=== PATIENT | female | born 1960 | race Caucasian/White ===

== ENCOUNTER 2017-06-24 05:37 | Inpatient (IN) ==
[2017-06-13 08:39] LABS: Basophils % 0.6 % (0.0-0.8); Eosinophils # 0.5 10*3/uL (0.0-0.87); Eosinophils % 8.3 % (0.00-10.9); Hematocrit 40.9 VOL% (35.7-47.0); Hemoglobin 13.2 GM/DL (12.0-16.0); Immature Granulocytes % 0.3 %; Immature Granulocytes Absolute 0.02 #; Lymphocytes # 1.1 10*3/uL (1.4-4.0); Lymphocytes % 17.5 % (21.3-54.2); Mean Corpuscular HGB Conc 32.3 GM/DL (32-36); Mean Corpuscular Hemoglobin 30 PG (27-34); Mean Corpuscular Volume 91.7 FL (87-102); Mean Platelet Volume 10.9 FL (9.6-12.0); Monocytes # 0.5 10*3/uL (0.11-0.8); Monocytes % 7.3 % (1.7-12.7); Neutrophils # 4.1 10*3/uL (1.4-7.4); Platelet Count 221 T/CUMM (130-400); Red Blood Count 4.46 MC/CUMM (3.8-5.5); Red Cell Distribution Width 13.8 % (9.3-17.3); White Blood Count 6.2 T/CUMM (4-12)
[2017-06-13 08:47] LABS: INR 0.9; PT Patient Result 9.9 SECS
[2017-06-13 08:48] LABS: Apearance,Urine CLEAR (Clear); Bilirubin,Urine Negative (Negative); Blood, Urine Negative (Negative); Glucose,Urine (UA) Negative (Negative); Ketones,Urine 5 mg/dL (Negative); Mucus,Urine Occasional /LPF (Occasional); Nitrite,Urine Negative (Negative); Protein,Urine Negative; RBC,Urine 1 /HPF (0-4); Squamous Epithelial Cell,Urine Occasional /HPF (0-10); Urine Color Yellow (Yellow); Urine Specific Gravity 1.014 (1.001-1.035); Urine Urobilinogen < 2.0 EU/DL (0.2-1.0); WBC,Urine 1 /HPF (0-6)
[2017-06-13 09:14] LABS: Albumin 3.4 G/DL (3.4-5.0); Bilirubin,Total 0.4 MG/DL (0.2-1.0); Calcium 9.1 MG/DL (8.5-10.1); Osmolality,Calculated 284.4 MOS/KG (273-304); Potassium 4.8 MMOL/L (3.5-5.1); Total Protein 6.7 G/DL (6.4-8.3)
[2017-06-24] MEDS ORDERED: DIAZEPAM 5 MG TABLET PO ONE (06:00)
[2017-06-24] MEDS ORDERED: FAMOTIDINE 20 MG TABLET PO ONE (06:00)
[2017-06-24] MEDS ORDERED: ceFAZolin 1,000 MG VIAL ONE (06:29)
[2017-06-24] MEDS ORDERED: VANCOMYCIN 1,000 MG VIAL ONE (06:29)
[2017-06-24] MEDS ORDERED: FAMOTIDINE 20 MG TABLET ONE (06:30)
[2017-06-24] MEDS ORDERED: VANCOMYCIN INJ 1,000 MG in SODIUM CHLORIDE 0.9% 250 ML IV ONE (06:30)
[2017-06-24] MEDS ORDERED: DIAZEPAM 5 MG TABLET ONE (06:30)
[2017-06-24] MEDS: LACTATED RINGERS 1,000 ML IV SCH ×2 (06:43→09:39)
[2017-06-24] MEDS ORDERED: BISACODYL 10 MG SUPP RECTAL PRN (07:21)
[2017-06-24] MEDS ORDERED: ONDANSETRON 4 MG/2 ML VIAL IV PRN (07:21)
[2017-06-24] MEDS ORDERED: LACTULOSE 20 GM/30 ML UDCUP PO PRN (07:21)
[2017-06-24] MEDS ORDERED: MAGNESIUM HYDROXIDE SUSP 30 ML UDCUP PO PRN (07:21)
[2017-06-24] MEDS ORDERED: NALOXONE 0.4 MG/ML VIAL IV PRN (07:21)
[2017-06-24] MEDS ORDERED: PROMETHAZINE 25 MG/1 ML VIAL IM PRN (07:21)
[2017-06-24] MEDS ORDERED: diphenhydrAMINE CAP 25 MG CAPSULE PO PRN (07:21)
[2017-06-24] MEDS ORDERED: MORPHINE 4 MG/1 ML VIAL IV PRN ×2 (07:21→10:27)
[2017-06-24] MEDS ORDERED: TEMAZEPAM 7.5 MG CAPSULE PO PRN (07:21)
[2017-06-24] MEDS ORDERED: CYCLOBENZAPRINE 10 MG TABLET PO PRN (07:24)
[2017-06-24] MEDS ORDERED: traMADol 50 MG TABLET PO PRN (07:24)
[2017-06-24] MEDS ORDERED: TRANEXAMIC ACID 1,000 MG/10 ML VIAL IV ONE (08:20)
[2017-06-24] MEDS ORDERED: MAGNESIUM OXIDE 400 MG TABLET PO SCH (09:00)
[2017-06-24 09:11] LABS: Apearance,Urine CLEAR (Clear); Bilirubin,Urine Negative (Negative); Blood, Urine Negative (Negative); Glucose,Urine (UA) Negative (Negative); Ketones,Urine Negative (Negative); Nitrite,Urine Negative (Negative); Protein,Urine Negative; RBC,Urine <1 /HPF (0-4); Squamous Epithelial Cell,Urine Occasional /HPF (0-10); Urine Color Colorless (Yellow); Urine Specific Gravity 1.004 (1.001-1.035); Urine Urobilinogen < 2.0 EU/DL (0.2-1.0)
[2017-06-24] MEDS ORDERED: KETAMINE 500 MG/10 ML VIAL ONE (09:13)
[2017-06-24] MEDS ORDERED: PROPOFOL 500 MG/50 ML BOTTLE IV ONE (09:13)
[2017-06-24] MEDS ORDERED: KETOROLAC 30 MG/1 ML VIAL ONE (09:13)
[2017-06-24] MEDS ORDERED: PHENYLEPHRINE 1 MG/10 ML SYRINGE IV ONE (09:13)
[2017-06-24] MEDS ORDERED: MIDAZOLAM 2 MG/2 ML VIAL ONE (09:13)
[2017-06-24] MEDS: MORPHINE PCA 30 MG/30 ML SYRINGE IV SCH (09:42)
[2017-06-24] MEDS ORDERED: PNEUMOCOCCAL VACCINE (23 VALENT) 0.5 ML VIAL IM ONE (10:47)
[2017-06-24] MEDS: FOLIC ACID 0.4 MG TABLET PO SCH (11:41)
[2017-06-24] MEDS: PANTOPRAZOLE 40 MG TABLET PO SCH (11:41)
[2017-06-24] MEDS: CHOLECALCIFEROL 1,000 UNIT TABLET PO SCH (11:41)
[2017-06-24] MEDS: DULoxetine 30 MG CAPSULE PO SCH (11:42)
[2017-06-24] MEDS: LOSARTAN/HCTZ 50-12.5 MG TABLET PO SCH (11:42)
[2017-06-24] MEDS: ASPIRIN EC 81 MG TABLET PO SCH (11:42)
[2017-06-24] MEDS: NEBIVOLOL 5 MG TABLET PO SCH (11:42)
[2017-06-24] MEDS: DOCUSATE SODIUM 100 MG CAPSULE PO SCH ×2 (11:42→20:15)
[2017-06-24] MEDS: GABAPENTIN 100 MG CAPSULE PO SCH ×2 (11:42→20:15)
[2017-06-24] MEDS: ceFAZolin 1,000 MG in SYRINGE 1 EACH IV SCH ×2 (11:47→20:14)
[2017-06-24] MEDS: PIOGLITAZONE 15 MG TABLET PO SCH ×2 (14:24→18:42)
[2017-06-24] MEDS: metFORMIN 850 MG TABLET PO SCH ×2 (14:24→18:42)
[2017-06-24] MEDS: FONDAPARINUX 2.5 MG/0.5 ML SYRINGE SUBCUT SCH (18:42)
[2017-06-24] MEDS: MAGNESIUM OXIDE 400 MG TABLET PO SCH (20:15)
[2017-06-24] MEDS: sitaGLIPtin 100 MG TABLET PO SCH (20:16)
[2017-06-24] MEDS ORDERED: CARBIDOPA/LEVODOPA CR 50-200 MG TABLET PO SCH (21:00)
[2017-06-24] MEDS: CARBIDOPA/LEVODOPA CR 25-100 MG TABLET PO SCH (21:11)
[2017-06-25] MEDS: LACTATED RINGERS 1,000 ML IV SCH ×2 (00:36→22:53)
[2017-06-25 05:15] LABS: Basophils % 0.6 % (0.0-0.8); Eosinophils # 0.1 10*3/uL (0.0-0.87); Eosinophils % 0.7 % (0.00-10.9); Hematocrit 32.9 VOL% (35.7-47.0); Hemoglobin 11.3 GM/DL (12.0-16.0); Immature Granulocytes % 0.4 %; Immature Granulocytes Absolute 0.03 #; Lymphocytes # 0.9 10*3/uL (1.4-4.0); Lymphocytes % 13.3 % (21.3-54.2); Mean Corpuscular HGB Conc 34.3 GM/DL (32-36); Mean Corpuscular Hemoglobin 30 PG (27-34); Mean Corpuscular Volume 88.4 FL (87-102); Mean Platelet Volume 11.6 FL (9.6-12.0); Monocytes # 0.6 10*3/uL (0.11-0.8); Monocytes % 7.9 % (1.7-12.7); Neutrophils # 5.4 10*3/uL (1.4-7.4); Neutrophils % 77.1 % (38.7-73.9); Platelet Count 175 T/CUMM (130-400); Red Blood Count 3.72 MC/CUMM (3.8-5.5); Red Cell Distribution Width 13.9 % (9.3-17.3)
[2017-06-25 05:44] LABS: Osmolality,Calculated 281.7 MOS/KG (273-304); Potassium 4.5 MMOL/L (3.5-5.1)
[2017-06-25] MEDS: LEVOTHYROXINE 100 MCG TABLET PO SCH (06:23)
[2017-06-25] MEDS: NEBIVOLOL 5 MG TABLET PO SCH (08:58)
[2017-06-25] MEDS: ASPIRIN EC 81 MG TABLET PO SCH (08:58)
[2017-06-25] MEDS: LOSARTAN/HCTZ 50-12.5 MG TABLET PO SCH (08:59)
[2017-06-25] MEDS: MORPHINE PCA 30 MG/30 ML SYRINGE IV SCH (08:59)
[2017-06-25] MEDS: DOCUSATE SODIUM 100 MG CAPSULE PO SCH ×2 (08:59→20:46)
[2017-06-25] MEDS: FOLIC ACID 0.4 MG TABLET PO SCH (08:59)
[2017-06-25] MEDS: DULoxetine 30 MG CAPSULE PO SCH (08:59)
[2017-06-25] MEDS: PIOGLITAZONE 15 MG TABLET PO SCH ×3 (08:59→17:55)
[2017-06-25] MEDS: GABAPENTIN 100 MG CAPSULE PO SCH ×2 (08:59→20:46)
[2017-06-25] MEDS: PANTOPRAZOLE 40 MG TABLET PO SCH (08:59)
[2017-06-25] MEDS: metFORMIN 850 MG TABLET PO SCH ×3 (08:59→17:56)
[2017-06-25] MEDS: CHOLECALCIFEROL 1,000 UNIT TABLET PO SCH (09:00)
[2017-06-25] MEDS: FONDAPARINUX 2.5 MG/0.5 ML SYRINGE SUBCUT SCH (18:00)
[2017-06-25] MEDS: sitaGLIPtin 100 MG TABLET PO SCH (20:46)
[2017-06-25] MEDS: CARBIDOPA/LEVODOPA CR 25-100 MG TABLET PO SCH (20:46)
[2017-06-25] MEDS: MAGNESIUM OXIDE 400 MG TABLET PO SCH (20:46)
[2017-06-26] MEDS: LEVOTHYROXINE 100 MCG TABLET PO SCH (06:02)
[2017-06-26] MEDS: LACTATED RINGERS 1,000 ML IV SCH (06:38)
[2017-06-26] MEDS: metFORMIN 850 MG TABLET PO SCH ×3 (09:16→17:33)
[2017-06-26] MEDS: PIOGLITAZONE 15 MG TABLET PO SCH ×3 (09:16→17:33)
[2017-06-26] MEDS: PANTOPRAZOLE 40 MG TABLET PO SCH (09:17)
[2017-06-26] MEDS: DOCUSATE SODIUM 100 MG CAPSULE PO SCH ×2 (09:17→21:33)
[2017-06-26] MEDS: GABAPENTIN 100 MG CAPSULE PO SCH ×2 (09:17→21:33)
[2017-06-26] MEDS: DULoxetine 30 MG CAPSULE PO SCH (09:17)
[2017-06-26] MEDS: ASPIRIN EC 81 MG TABLET PO SCH (09:17)
[2017-06-26] MEDS: FOLIC ACID 0.4 MG TABLET PO SCH (09:17)
[2017-06-26] MEDS: CHOLECALCIFEROL 1,000 UNIT TABLET PO SCH (09:17)
[2017-06-26] MEDS: NEBIVOLOL 5 MG TABLET PO SCH (09:18)
[2017-06-26] MEDS: LOSARTAN/HCTZ 50-12.5 MG TABLET PO SCH (09:19)
[2017-06-26] MEDS: MORPHINE PCA 30 MG/30 ML SYRINGE IV SCH (12:40)
[2017-06-26] MEDS: FONDAPARINUX 2.5 MG/0.5 ML SYRINGE SUBCUT SCH (17:34)
[2017-06-26] MEDS: sitaGLIPtin 100 MG TABLET PO SCH (21:33)
[2017-06-26] MEDS: MAGNESIUM OXIDE 400 MG TABLET PO SCH (21:33)
[2017-06-26] MEDS: CARBIDOPA/LEVODOPA CR 25-100 MG TABLET PO SCH (21:33)
[2017-06-27] MEDS: LEVOTHYROXINE 100 MCG TABLET PO SCH (06:09)
[2017-06-27] MEDS: metFORMIN 850 MG TABLET PO SCH (08:26)
[2017-06-27] MEDS: FOLIC ACID 0.4 MG TABLET PO SCH (08:26)
[2017-06-27] MEDS: DULoxetine 30 MG CAPSULE PO SCH (08:26)
[2017-06-27] MEDS: NEBIVOLOL 5 MG TABLET PO SCH (08:27)
[2017-06-27] MEDS: PIOGLITAZONE 15 MG TABLET PO SCH (08:27)
[2017-06-27] MEDS: LOSARTAN/HCTZ 50-12.5 MG TABLET PO SCH (08:27)
[2017-06-27] MEDS: CHOLECALCIFEROL 1,000 UNIT TABLET PO SCH (08:27)
[2017-06-27] MEDS: ASPIRIN EC 81 MG TABLET PO SCH (08:27)
[2017-06-27] MEDS: PANTOPRAZOLE 40 MG TABLET PO SCH (08:27)
[2017-06-27] MEDS: GABAPENTIN 100 MG CAPSULE PO SCH (08:27)
[2017-06-27] MEDS: DOCUSATE SODIUM 100 MG CAPSULE PO SCH (08:27)
[2017-06-27 11:12] VITALS: BP 98/53
[2017-06-29] MEDS ORDERED: Alendronate [Fosamax] 70 MG PO SCH (07:30)
== END 2017-06-27 11:05 | disposition swing bed (61) | DRG 470 ==
LOC: N.OR 05:37 → N.SDSINP 05:42 → N.3E 07:21
PROVIDERS: ADMIT Orthopaedic Surgery; ATTEND Orthopaedic Surgery